=== PATIENT | male | born 1965 | race Caucasian/White ===

== ENCOUNTER 2017-03-11 05:59 | Day surgery (SDC) | payer OTHER ==
[2017-03-11] VITALS (11 sets, daily range): BP systolic 110–149; BP diastolic 68–105; PULSE 90–124; RESP 18–20; TEMP 97.6–98.2; O2SAT 96–98
[~2017-03-11] VITALS: Ht 182.9 cm; Wt 114.0 kg
[2017-03-11] MEDS ORDERED: METOPROLOL TARTRATE 25 MG TAB PO PRN (06:45)
[2017-03-11] MEDS ORDERED: LORazepam 1 MG TAB SL SCH (06:45)
[2017-03-11] MEDS ORDERED: POVIDONE IODINE 5% (ANTISEPSIS KIT) 4 APPLICATIONS EACH NARE PRN (06:45)
[2017-03-11] MEDS ORDERED: SODIUM CHLORID 0.9% 500 ML IV PRN (06:45)
[2017-03-11] MEDS ORDERED: CHLORHEXIDINE GLUCONATE 2 % 1 PACK (2 CLOTHS) TOPICAL PRN (06:45)
[2017-03-11] MEDS ORDERED: LACTATED RINGER'S 1000 ML IV PRN (06:45)
[2017-03-11] MEDS ORDERED: DOFE250 PO (06:52)
[2017-03-11] MEDS ORDERED: MULTTAB4 PO (06:52)
[2017-03-11] MEDS ORDERED: TAMS5CAP PO (06:52)
[2017-03-11] MEDS ORDERED: ALPR.25 PO (06:52)
[2017-03-11] MEDS ORDERED: VENL150T PO (06:52)
[2017-03-11] MEDS ORDERED: PRAD150C PO (06:52)
[2017-03-11] MEDS ORDERED: LEVOFLOXACIN 500 MG PREMIX INJ 100 ML IV ONE (07:32)
[2017-03-11] MEDS ORDERED: HEPARIN-NS/PF INJ 2,000 ML ONE (07:32)
[2017-03-11] MEDS ORDERED: HEPARIN-D5W 25,000 U/250 ML 250 ML ONE (07:48)
[2017-03-11] MEDS ORDERED: PROTAMINE SULFATE 50 MG/5 ML VIAL ONE ×2 (07:48→10:37)
[2017-03-11] MEDS ORDERED: HEPARIN SODIUM - IV 10,000 UNITS/10 ML VIAL ONE ×2 (07:48→09:25)
[2017-03-11] MEDS ORDERED: ISOPROTERENOL HCL 1 MG/5 ML AMP ONE (07:48)
[2017-03-11 07:58] LABS: AUTOMATED NEUTROPHIL # 3.8 TH/MM3 (1.8-7.7); BASOPHIL # 0.2 TH/MM3 (0-0.2); BASOPHIL % 2.6 % (0.0-2.0); EOSINOPHIL # 0.3 TH/MM3 (0-0.4); EOSINOPHIL % 4.2 % (0.0-4.0); HEMATOCRIT 44.3 % (39.0-51.0); HEMOGLOBIN 15.1 GM/DL (13.0-17.0); LYMPH % 35.2 % (9.0-44.0); LYMPHOCYTE # 2.7 TH/MM3 (1.0-4.8); MEAN CELL VOLUME 89.5 FL (80.0-100.0); MEAN CORPUSCULAR HEMOGLOBIN 30.5 PG (27.0-34.0); MEAN CORPUSCULAR HGB CONC 34.1 % (32.0-36.0); MEAN PLATELET VOLUME 9.7 FL (7.0-11.0); MONO % 8.7 % (0.0-8.0); MONOCYTE # 0.7 TH/MM3 (0-0.9); NEUT % 49.3 % (16.0-70.0); PLATELET COUNT 204 TH/MM3 (150-450); RED BLOOD COUNT 4.95 MIL/MM3 (4.50-5.90); RED CELL DISTRIBUTION WIDTH 13.7 % (11.6-17.2); WHITE BLOOD COUNT 7.7 TH/MM3 (4.0-11.0)
[2017-03-11 08:08] LABS: INTERNATIONAL NORMALIZED RATIO 1.1 RATIO; PROTHROMBIN TIME - PATIENT 10.7 SEC (9.8-11.6)
[2017-03-11 08:20] LABS: BICARBONATE 26.3 MEQ/L (21.0-32.0); CALCIUM 8.9 MG/DL (8.5-10.1); CREATININE 1.21 MG/DL (0.60-1.30)
--- NOTE | 2017-03-11 10:36 | PD.CARD ---
Atrial Fibrillation Ablation PROCEDURE DATE: Mar 11, 2017 PROCEDURES PERFORMED: 1. Electrophysiology study on Isuprel infusion 2. CS cannulation 3. 3-D mapping 4. Transseptal approach 5. Right and left heart catheterization 6. Intracardiac echo 7. Radiofrequency ablation of atrial fibrillation 8. Pulmonary vein isolation 9. Posterior wall ablation 10. Mitral valve isolation 11. Mitral line creation 12. Left atrial tachycardia ablation 13. Roof line creation 14. Floor line creation 15. Anterior wall ablation 16. Left atrial appendage isolation 16. Cardioversion INDICATIONS FOR THE PROCEDURE Mr. Martínez is a 51-year-old male with atrial fibrillation, cardiomyopathy, very symptomatic, heart rate difficult to control, admits for electrophysiology study and ablation. The risks, the nature and the benefits of the procedure were clearly stated to him. The risks include pneumothorax, cardiac perforation, stroke, need for open heart surgery and even . The patient understood and agreed to proceed. DESCRIPTION OF THE PROCEDURE IN DETAIL As written informed consent was obtained prior to esophageal echocardiogram, the patient was kept on the table where he was prepped and draped in the usual sterile fashion. Conscious sedation was initiated and maintained throughout the procedure by the anesthesiologist. Once sedation was verified, the right and left inguinal areas were anesthetized with 2% Xylocaine. Using modified Seldinger technique, the left femoral vein was cannulated on three occasions, three guidewires were advanced. Over the wire a 6, 7 and a 10-Canadian Hemaquet were advanced. Then the left femoral artery was cannulated on one occasion, one guidewire was advanced. Over the wire a 4-Canadian Hemaquet was advanced. Then the right femoral vein was cannulated on one occasion, one guidewire was advanced. Over the wire a 8-Canadian Hemaquet was advanced. Then under fluoroscopic guidance through the 6 and 7-Canadian Hemaquet, two 5-Canadian Farrah curved quadripolar electrophysiology catheters were advanced and placed around the His as well as coronary sinus. Basic interval was measured. The patient was in atrial fibrillation. Through the 10-Canadian Hemaquet, a Cordis Vivas AcuNav intracardiac echo catheter was advanced and placed at the right atrium. Multiple view was obtained. There is minimal pericardial effusion, pulmonary vein was seen, atrial septal was visualized. Then the 8- [place] Hema[place] in the right femoral vein was exchanged for Agilis transseptal sheath that was placed all the way to the superior vena cava. Through the sheath a Lissett needle was advanced, then the sheath, the dilator and the needle were progressed until foci engaged. Once engaged, the needle was advanced. RF was delivered for 2 seconds. I was able to cross into the left atrium. Once the needle crossed, the dilator was advanced. Once the dilator crossed, the sheath was advanced. Once the sheath crossed, the dilator and the needle were removed. At this point I did flood the system and fluid movement was seen in the left atrium the indicates the sheath is in good position. The patient already received 10,000 units of heparin. The goal is to keep an ACT around 350 during ablation. Then through the sheath a St. Solo 20 pulse circumferential catheter was advanced. Using [employer] endocardial solution mapping system, a two-dimensional configuration of the left atrium was obtained. Points were taken at the left superior and inferior veins, right superior and inferior veins, mitral valve, and appendages. Then through the sheath a St. Solo TactiCath 65cm 3.5mm irrigated tipped mapping and radiofrequency ablation catheter was advanced. Esophageal probe was placed temperature monitoring during ablation. When it increased to 0.5 degrees Celsius above baseline, I moved to a different area of the atrium. First I did isolate the left superior and inferior vein. I did make a big [place] around the veins. Posterior was ablated. Then a roof line was created, a floor line was created, a mitral line was isolated, then the mitral valve was isolated. At that point the patient was in left atrial tachycardia. Tachycardia was remapped. Early activation at the left atrial appendage. Left atrial appendage was isolated. tachycardia change activation and accelerate.. Then I proceed with anterior wall and lateral wall ablation. I did create a line from the floor to the roof area, passing by the left atrial appendage. Then the right superior and inferior veins were isolated. I did remap the atrium. There is no significant signal in the atrium. I mapped the right atrium. Right was in afib. Left was in atrial tachycardia. At this point I decided to proceed with cardioversion. A 200 sync biphasic joule was delivered that converted the patient into sinus rhythm. At that point I did advance the circumferential catheter again into the vein. There was no signal into the vein, pacing from the vein showed no conduction to the atrium. Isuprel infusion was initiated at 10 mcg for over 10 minutes. No tachyarrhythmia was induced, post Isuprel no tachyarrhythmia was induced. At that point the procedure was complete. All catheters were removed, atrial septal sheath was exchanged for 9-Canadian Hemaquet, intracardiac echo showed no pericardial effusion. There is still good flow in the pulmonary vein. The patient is going to be transferred to the recovery room. No incident report. The patient tolerated the procedure. Blood loss was minimal. FINDINGS 1. Electrocardiogram: At baseline the patient was in atrial fibrillation, post procedure the patient was in sinus rhythm. 2. Basic interval: Base cycle length was around 410ms. Post ablation she was around 980 milliseconds. AH at 100 and HV at 62 milliseconds. 3. Tachyarrhythmia: Atrial fibrillation was mapped and ablated. Atrial tachycardia was ablated. The ablation was successful. CONCLUSION Successful electrophysiology study, mapping, radiofrequency ablation of atrial fibrillation, left atrial tachycardia, pulmonary vein isolation, posterior ablation, mitral valve isolation, mitral line creation, roof line creation, floor line creation, left atrial tachycardia,left atrial appendage isolation and cardioversion. COMMENTS AND RECOMMENDATIONS The patient is going to be transferred to the telemetry unit. Will be observed and when stable can be discharged home. Zaira Eldridge MD Mar 11, 2017 10:36
[2017-03-11] MEDS ORDERED: SODIUM CHLOR 0.9% 250 ML INJ 250 ML IV PRN (10:45)
[2017-03-11] MEDS ORDERED: oxyCODONE/ACETAMINOPHEN 5 MG/325 MG TAB PO PRN ×2 (10:45)
[2017-03-11] MEDS ORDERED: BACITRACIN OINT 0.9 GM PKT TOP ONE (10:45)
[2017-03-11] MEDS ORDERED: ONDANSETRON HCL 4 MG/2 ML VIAL IV PUSH PRN (10:45)
[2017-03-11] MEDS ORDERED: ATROPINE SULFATE 1 MG/ML VIAL IV PUSH PRN (10:45)
[2017-03-11] MEDS ORDERED: LIDOCAINE HCL 1% 50 ML VIAL INFIL PRN (10:45)
[2017-03-11] MEDS ORDERED: LORazepam 2 MG/ML VIAL IV PUSH PRN (10:45)
--- NOTE | 2017-03-11 10:51 | CATHPROC ---
Patient Name: NIVIA INIGUEZ Study #: [id number] Initial MD: Zaira Eldridge Date of : 1965 Study Date: 03/11/2017 Cardiac Catheterization Report 03/11/2017 10:50:57 AM Financial #: [id number] 1 of 11 Patient Name: NIVIA INIGUEZ Study #: [id number] Initial MD: Zaira Eldridge Date of : 1965 Study Date: 03/11/2017 Entire Case Report Patient Information Patient Name NIVIA INIGUEZ Date of 1965 Age 51 years Financial # [id number] Gender M AlternateID Lab Number 2 Room Number DC05 Height (in) 72.0 Height (cm) 182.9 BSA 2.34 Weight (lbs) 249.7 Weight (kg) 113.5 Patient Address/Phone Number Home Address [facility] Home Phone Number [address] [facility] [id number] Study Information Study Number Admission Scheduled Start Study Start [id number] Mar 11 2017 5:59AM 03/11/2017 Mar 11 2017 7:41AM [place] [facility] Electrophysiology Study Admit Source Facility Department Other [facility] Physician and Clinical Staff Initial Zaira Flaherty Police Liaison Officer Sherrie Zuniga RCIS Other Anesthesia, DAIRY CONSULTANT Recorder Isabel Milligan,RN Recorder Paige Parham,KATIE Scrub Hay Moss,RT(R) Procedures Performed Procedure Location (Site) Vessel Name Ablation Procedure Cardioversion ICE CATHETER INSERT RA Atruim RF Ablation LT. ATRIUM LT. A[facility]IUM 03/11/2017 10:50:57 AM Financial #: [id number] 2 of 11 Patient Name: NIVIA INIGUEZ Study #: [id number] Initial MD: Zaira Eldridge Date of : 1965 Study Date: 03/11/2017 Equipment Time Tapper Bit Description Size Mfg Part Number Used/Scraped NEEDLE, TRANSSEPTAL NRG 98 [id number] 08:10 [facility] Used C1 *[id number] BIOSENSE WAGNER [id number] 08:30 CATHETER, ACUNAV FR10 ICE FR 10 Used INC. *[id number] [employer]/ EP 445136 08:10 KIT, TRANSDUCER / AFIB Used PACER *[id number]- CATHETER, TACTICATH ABLAT BUNDLE 08:10 BUN[facility] MAX[employer] Used 65 BUNDLE *[id number]- BUNDLE [id number] CATHETER, FR7 OPTIMA SPIRAL 08:10 BUND[employer] FR7 *[id number]- Used BUNDLE BUNDLE [id number] 08:10 BUND[employer] CATHETER, JSN, QUAD BUNDLE FR 5 *[id number]- Used BUNDLE [id number] 08:10 BUND[employer] CATHETER, JSN, QUAD BUNDLE FR 5 *[id number]- Used BUNDLE 44340-[id number] SET, COOL POINT TUBING 08:10 BUNDLE-[employer] MAXINE *[id number]- Used BUNDLE BUNDLE SHEATH, FR8.5 STEERABLE SM 08:10 BUND[employer] 71CM [id number] Used 71CM BUNDLE COVER, TRANSDUCER CABLE 612-113 08:10 [employer] Used ACUNAV *[id number] 08:10 CORDIS/PACER SHEATH, FR10 ASHLEE 11CM FR 10 Used *[id number] 10:04 CORDIS/PACER SHEATH, FR10 ASHLEE 11CM FR 10 Used *[id number] 08:10 CORDIS/PACER SHEATH, FR9 ASHLEE 11CM FR 9 [id number] Used [id number] 08:10 [employer] PACK, CCL CUSTOM * Used *[id number] 08:10 [employer] PACER SOLO, LIMB * 2530 *[id number] Used [id number] 08:10 [place] SHEATH, FR4.5 PRELUDE 11CM FR 4.5 Used [id number] 08:10 NAMIC TUBING, HIGH PRESSURE 48" 48" Used *[id number] 08:10 NAMIC TUBING, HIGH PRESSURE 48" 48" Used *9130463 [id number] 08:10 [employer] BL[employer]ET,WARM AIR CCL * Used *[id number] HC5729 08:10 [facility] [employer] MEDICAL ELECTRODE KIT, ZOLTAN X SURFACE * Used *[id number] 740796 08:10 [employer] MEDICAL SHEATH, EPS, FR6 FAST CATH FR 6 Used *[id number] 08:10 [employer] MEDICAL SHEATH, EPS, FR7 FAST CATH FR 7 [id number] Used 091089 08:10 [employer] MEDICAL SHEATH, EPS, FR8 FAST CATH FR 8 Used *[id number] [facility] PAD, ELECTROSURGICAL 08:10 * [id number] *[id number] Used SURGICAL GROUNDING (BLUE) 03/11/2017 10:50:57 AM Financial #: [id number] 3 of 11 Patient Name: NIVIA INIGUEZ Study #: [id number] Initial MD: Zaira Eldridge Date of : 1965 Study Date: 03/11/2017 Insurance Information Insurance Payor Private Health Insurance Third Constitution Party Third Constitution Party Number AETNA POS AETPOS History: Allergies Allergy Reaction No Known Allergies History: Risk Factors Hypertension Yes Labs Hgb (g/dl) Hct (%) RBC (MIL/MM3) WBC (l/cumm) Platelets (thousands) 11.60-17.00 35.00-51.00 4.00-5.90 4.00-11.00 150.00-450.00 15.1 44.3 4.9 7.7 204 Medication Medication Total Dose (Bolus/Oral) Medication Total Dosage/Unit 1% XYLOCAINE 40 mL HEPARIN 22012 units PROTAMINE 60 mg 03/11/2017 10:50:57 AM Financial #: [id number] 4 of 11 Patient Name: NIVIA INIGUEZ Study #: [id number] Initial MD: Zaira Eldridge Date of : 1965 Study Date: 03/11/2017 Medications (Bolus/Oral) Medication Time Given Dosage/Unit Administered By Reason 1% XYLOCAINE 03/11/2017 8:20:14 AM 20 mL Zaira Eldridge 20 mL 1% XYLOCAINE given in lab by Zaira Eldridge in Left Groin via Subcutaneous. Ordered by Torrey Eldridge. 1% XYLOCAINE 03/11/2017 8:24:59 AM 20 mL Zaira Eldridge 20 mL 1% XYLOCAINE given in lab by Zaira Eldridge in Right Groin via Subcutaneous. Ordered by Lynn Eldridge. HEPARIN 03/11/2017 8:31:56 AM 56763 units Anesthesia, DAIRY CONSULTANT As per physicians v erbal order 13061 units HEPARIN given in lab by Anesthesia, DAIRY CONSULTANT via Peripheral IV. Ordered by Zaira Eldridge. Melodie son: As per physicians verbal order. HEPARIN 03/11/2017 8:46:20 AM 2000 units Anesthesia, DAIRY CONSULTANT As per physicians ve rbal order 2000 units HEPARIN given in lab by Anesthesia, DAIRY CONSULTANT via Peripheral IV. Ordered by Zaira Eldridge. Reas on: As per physicians verbal order. HEPARIN 03/11/2017 8:58:25 AM 2000 units Anesthesia, DAIRY CONSULTANT As per physicians ve rbal order 2000 units HEPARIN given in lab by Anesthesia, DAIRY CONSULTANT via Peripheral IV. Ordered by Zaira Eldridge. Reas on: As per physicians verbal order. HEPARIN 03/11/2017 9:11:31 AM 2000 units Anesthesia, DAIRY CONSULTANT As per physicians ve rbal order 2000 units HEPARIN given in lab by Anesthesia, DAIRY CONSULTANT via Peripheral IV. Ordered by Zaira Eldridge. Reas on: As per physicians verbal order. HEPARIN 03/11/2017 9:26:10 AM 4000 units Anesthesia, DAIRY CONSULTANT As per physicians ve rbal order 4000 units HEPARIN given in lab by Anesthesia, DAIRY CONSULTANT via Peripheral IV. Ordered by Zaira Eldridge. Reas on: As per physicians verbal order. PROTAMINE 03/11/2017 10:26:44 AM 40 mg Anesthesia, DAIRY CONSULTANT As per physicians sana bal order 40 mg PROTAMINE given in lab by Anesthesia, DAIRY CONSULTANT via Peripheral IV. Ordered by Zaira Eldridge. Reason: As per physicians verbal order. PROTAMINE 03/11/2017 10:39:52 AM 20 mg Anesthesia, DAIRY CONSULTANT As per physicians sana bal order 20 mg PROTAMINE given in lab by Anesthesia, DAIRY CONSULTANT via Peripheral IV. Ordered by Zaira Eldridge. Reason: As per physicians verbal order. Medication (Drip) Medication Time Given Dosage/Unit Concentration/Unit Diluent (ml) Solution HEPARIN DRIP 03/11/2017 8:46:21 AM 1000 units/hr 63041 units 250 D5W 1000 units/hr HEPARIN DRIP given in lab by Anesthesia, DAIRY CONSULTANT via Peripheral IV. Pump/Drip Flow = 10 ml /hr [place] [address] units in 250 ml. Ordered by Hanscy. Jazmyn Reason: As per physicians verbal order. ISUPREL 03/11/2017 10:10:50 AM 10 mcg/min 1 mg 250 NaCl .9 10 mcg/min ISUPREL given in lab by Anesthesia, DAIRY CONSULTANT via Peripheral IV. Pump/Drip Flow = 150 ml/hr usi ng NaCl .9 with a concentration of 1 mg in 250 ml. Ordered by Zaira Eldridge. Reason: As per physicians verbal order. LEVAQUIN 03/11/2017 8:05:29 AM 100 mL/hr 500 100 NaCl .9 100 mL/hr LEVAQUIN given in lab by Anesthesia, DAIRY CONSULTANT via Peripheral IV. Pump/Drip Flow = 0 ml/hr using NaCl .9 with a concentration of 500 in 100 ml. Ordered by Zaira Eldridge. Reason: As per physicians verbal order. for carter catheter 03/11/2017 10:50:57 AM Financial #: [id number] 5 of 11 Patient Name: NIVIA INIGUEZ Study #: [id number] Initial MD: Zaira Eldridge Date of : 1965 Study Date: 03/11/2017 Initial Case Assessment Cardiovascular HR Rhythm NIBP Chest Pain 126 af 145/97 0 Edema Present Skin color Skin None Normal Warm Dry Circulatory - Right Pulses Dorsalis Pedis 1 Scale (0,1,2,3,4,d) Circulatory - Left Pulses Dorsalis Pedis 1 Scale (0,1,2,3,4,d) Circulatory - Lower Extremities Color Lower Right Color Lower Left Normal Normal Neurological State Oriented to time-place- Alert Moves all extremities person Respiration - General Respiration Rate SpO2 (%) (B/min) 18 96 03/11/2017 10:50:57 AM Financial #: [id number] 6 of 11 Patient Name: NIVIA INIGUEZ Study #: [id number] Initial MD: Zaira Eldridge Date of : 1965 Study Date: 03/11/2017 Final Case Assessment Cardiovascular HR Rhythm NIBP Chest Pain 80 sr 110/68 0 Edema Present Skin color Skin None Normal Warm Dry Circulatory - Right Pulses Dorsalis Pedis 1 Scale (0,1,2,3,4,d) Circulatory - Left Pulses Dorsalis Pedis 1 Scale (0,1,2,3,4,d) Circulatory - Lower Extremities Color Lower Right Color Lower Left Normal Normal Neurological State Alert Moves all extremities Respiration - General Respiration Rate SpO2 (%) (B/min) 16 98 Chronological Log Time Study Chronological Log 7:33:37 Patient arrived via Bed. 7:33:38 Patient Name, D.O.B, / Armband Verified By R.N. 7:33:39 Consent signed by the physician and the patient and verified by the [facility] staff. 7:33:40 Pre-op and post- op instructions given; patient acknowledges understanding of instructions. 7:33:44 Patient has been NPO for More than 6Hrs. 7:33:53 History and physical on the chart. 7:34:42 Verbal Stimulation=2 Physical Stimulation=2 Airway=2 Respiration=2 TOTAL=8. (0=absent, 1=li mited, 2=present) 7:34:46 Skin Breakdown- none per pt. 7:35:47 Patient Warmer Placed on the Table. 03/11/2017 10:50:57 AM Financial #: [id number] Patient Name: NIVIA INIGUEZ Study #: [id number] Initial MD: Zaira Eldridge Date of : 1965 Study Date: 03/11/2017 7:35:48 Disposable Defibrillator Pads Placed On Patient. 7:36:49 Kelvin Prominences Protected 7:36:51 A # 20 IV was noted in the Antecubital (left). Grade = 0 0.9% NaCl @ KVO 7:41:52 A # 20 IV was noted in the Antecubital (right). Grade = 0 0.9% NaCl @ KVO 7:45:13 Anesthesia at bedside. Assumes care of patient. Maykel 7:45:48 Table restraints applied according to hospital policy Assessment: Initial Case, ZH=627 BPM, Rhythm=af, LALP=569/97 mmhg, Chest Pain=0, Edema=None, Co cassia=Normal, Skin = Warm, Dry Right Pulses: Omar Ped=1 Left Pulses: Omar Ped=1 7:52:57 Lower Right Extremities: Color=Normal Lower Left Extremities: Color=Normal Neurological: State=Alert, Ox3, DORADO Respiration: Resp=18 B/min, SpO2=96 % 7:55:20 Reference ECG taken Anesthesiologist Dr. Connelly present for intubation. A 14Fr carter catheter was inserted aseptically with clear yellow urine 7:56:40 returns. 8:04:41 Bilateral groins prepped with 2% chlorhexidine, and draped after a 3 minute waiting time. 100 mL/hr LEVAQUIN given in lab by Anesthesia, DAIRY CONSULTANT via Peripheral IV. Pump/Drip Flow = 0 ml/hr using NaCl .9 with 8:05:29 a concentration of 500 in 100 ml. Ordered by Zaira Eldridge. Reason: As per physicians verbal or justin. for carter catheter 8:07:00 paged. 8:08:00 MD responded 8:12:32 MD arrived. Time Out. Correct patient, procedure, procedure equipment, site and side verified with physicia n present. Time 8:17:00 concurred by MD, individual staff and DAIRY CONSULTANT. Time Out #2 - Consents verified, patient in correct position, all results are labled and displa yed, safety precautions 8:17:14 taken, antibiotics administered. Time out concurred by MD, individual staff and DAIRY CONSULTANT in procedu re 8:17:21 Case Start 8:17:52 DAE in progress. 8:19:19 DAE completed, negative. 8:20:14 20 mL 1% XYLOCAINE given in lab by Zaira Eldridge in Left Groin via Subcutaneous. Ordered by Zaira Eldridge. 8:21:34 Vascular access was obtained in the Fem Vein (left). 8:21:41 Vascular access was obtained in the Fem Vein (left). 8:21:54 Vascular access was obtained in the Fem Vein (left). 8:22:02 Vascular access was obtained in the Fem Art (left). 8:22:18 A SHEATH, FR4.5 PRELUDE 11CM FR 4.5 was advanced into the Fem Art (left) using the Modified Seldinger technique. 8:22:34 A SHEATH, EPS, FR7 FAST CATH FR 7 was advanced into the Fem Vein (left) using the Modified Seldinger technique. 8:22:51 A SHEATH, EPS, FR6 FAST CATH FR 6 was advanced into the Fem Vein (left) using the Modified Seldinger technique. 8:22:59 A SHEATH, FR10 ASHLEE 11CM FR 10 was advanced into the Fem Vein (left) using the Modified S eldinger technique. 8:24:59 20 mL 1% XYLOCAINE given in lab by Zaira Eldridge in Right Groin via Subcutaneous. Ordered b Zaira Tilley. 8:25:06 Vascular access was obtained in the Fem Vein (right). 8:25:18 A SHEATH, EPS, FR8 FAST CATH FR 8 was advanced into the Fem Vein (right) using the Modified Seldinger technique. 03/11/2017 10:50:57 AM Financial #: [id number] 8 of 11 Patient Name: NIVIA INIGUEZ Study #: [id number] Initial MD: Zaira Eldridge Date of : 1965 Study Date: 03/11/2017 A CATHETER, JSN, QUAD BUNDLE FR 5 was advanced vis Fem Vein (left) and placed in the CS. Placem ent was visually 8:26:51 confirmed under fluoroscopy. A CATHETER, JSN, QUAD BUNDLE FR 5 was advanced vis Fem Vein (left) and placed in the HIS. Place ment was 8:27:03 visually confirmed under fluoroscopy. 8:27:20 CATHETER, ACUNAV FR10 ICE FR 10 Was Postioned. 8:27:54 temp 36.4 A SHEATH, FR8.5 STEERABLE SM 71CM BUNDLE 71CM was exchanged in the Fem Vein (left). This was ne cessary in 8:29:24 order for catheter support. 8:30:29 [place] needle in 8:30:48 A eps was advanced to the right atrium and passed through the septal wall to the left atriu [place]. 01032 units HEPARIN given in lab by Anesthesia, DAIRY CONSULTANT via Peripheral IV. Ordered by Dave Eldridge Reason: As per 8:31:56 physicians verbal order. 8:31:59 [place] needle out. A CATHETER, FR7 OPTIMA SPIRAL BUNDLE FR7 was advanced vis Fem Vein (right) and placed in the LA . Placement 8:33:25 was visually confirmed under fluoroscopy. 8:33:52 Mapping in progress. 8:40:50 Activated Clotting Time Drawn 8:41:57 Mapping complete, catheter was removed spiral) A CATHETER, TACTICATH ABLAT 65 BUNDLE was advanced vis Fem Vein (right) and placed in the LA. P lacement was 8:42:34 visually confirmed under fluoroscopy. 8:43:54 ACT (Normal Range 90-180) = 332 8:44:42 Ablation in progress 2000 units HEPARIN given in lab by Anesthesia, DAIRY CONSULTANT via Peripheral IV. Ordered by Zaira Eldridge . Reason: As per 8:46:20 physicians verbal order. 1000 units/hr HEPARIN DRIP given in lab by Anesthesia, DAIRY CONSULTANT via Peripheral IV. Pump/Drip Flow = 10 ml/hr using 8:46:21 D[place] [address] units in 250 ml. Ordered by Zaira Eldridge. Reason: As per luci hansonians verbal order. 8:52:06 Activated Clotting Time Drawn 8:58:18 ACT (Normal Range 90-180) = 328 2000 units HEPARIN given in lab by Anesthesia, DAIRY CONSULTANT via Peripheral IV. Ordered by Zaira Eldridge . Reason: As per 8:58:25 physicians verbal order. 9:00:26 Ablation remains in progress. 9:04:09 Activated Clotting Time Drawn 9:11:20 ACT (Normal Range 90-180) = 340 2000 units HEPARIN given in lab by Anesthesia, DAIRY CONSULTANT via Peripheral IV. Ordered by Zaira Eldridge . Reason: As per 9:11:31 physicians verbal order. 9:16:11 Activated Clotting Time Drawn 9:24:50 ACT (Normal Range 90-180) = 334 9:24:56 BL out. MM in. 4000 units HEPARIN given in lab by Anesthesia, DAIRY CONSULTANT via Peripheral IV. Ordered by Zaira Eldridge . Reason: As per 9:26:10 physicians verbal order. 9:32:27 Activated Clotting Time Drawn 9:43:25 ACT (Normal Range 90-180) = 371 9:45:31 Ablation Catheter removed A CATHETER, FR7 OPTIMA SPIRAL BUNDLE FR7 was advanced vis Fem Vein (right) and placed in the LA . Placement 9:45:51 was visually confirmed under fluoroscopy. 03/11/2017 10:50:57 AM Financial #: [id number] Patient Name: NIVIA INIGUEZ Study #: [id number] Initial MD: Zaira Eldridge Date of : 1965 Study Date: 03/11/2017 9:49:18 Mapping Catheter removed A CATHETER, TACTICATH ABLAT 65 BUNDLE was advanced vis Fem Vein (right) and placed in the LA. P lacement was 9:49:29 visually confirmed under fluoroscopy. 10:04:00 Ablation complete. 10:04:17 ECG rhythm of AF noted. Patient cardioverted at 200 joules. Success synch 10:04:31 Monitor SR. 10 mcg/min ISUPREL given in lab by Anesthesia, DAIRY CONSULTANT via Peripheral IV. Pump/Drip Flow = 150 ml/ hr using NaCl .9 10:10:50 with a concentration of 1 mg in 250 ml. Ordered by Zaira Eldridge. Reason: As per physicians sana bal order. 10:21:00 Isuprel off. 10::29 All Catheter(s) removed without difficulty A SHEATH, FR9 ASHLEE 11CM FR 9 was exchanged in the Fem Vein (right). This was necessary in ord er to minimize 10::58 site leakage. 10:22:00 Heparin off. 10::21 Sheath(s) left in place,secured, 0.9ns kvo connected and will be removed in Holding Area. 10:23:45 Ablation procedure performed: VT. 10:23:51 EP Procedure was performed. 10:24:11 PACU called. Spoke to Angie 10:24:38 Bedside Report will be given. 40 mg PROTAMINE given in lab by Anesthesia, DAIRY CONSULTANT via Peripheral IV. Ordered by Zaira Eldridge. R miya: As per 10:26:44 physicians verbal order. 10:32:00 Activated Clotting Time Drawn 10:35:50 Case End 10:35:51 Sterile dressing applied to site 10:35:51 No case complications noted. 10:35:52 Cine recording checked. Assessment: Final Case, HR=80 BPM, Rhythm=sr, BDWZ=697/68 mmhg, Chest Pain=0, Edema=None, Color =Normal, Skin = Warm, Dry Right Pulses: Omar Ped=1 Left Pulses: Omar Ped=1 10:37:30 Lower Right Extremities: Color=Normal Lower Left Extremities: Color=Normal Neurological: State=Alert, DORADO Respiration: Resp=16 B/min, SpO2=98 % 10:39:16 Defibrillator and ground pads removed. Skin intact. 10:39:37 ACT (Normal Range 90-180) = 257 20 mg PROTAMINE given in lab by Anesthesia, DAIRY CONSULTANT via Peripheral IV. Ordered by Zaira Eldridge. R miya: As per 10:39:52 physicians verbal order. 10:46:22 Patient moved to stretcher 10:47:00 Activated Clotting Time Drawn 10:50:45 ACT (Normal Range 90-180) = 180 03/11/2017 10:50:57 AM Financial #: [id number] Patient Name: NIVIA INIGUEZ Study #: [id number] Initial MD: Zaira Eldridge Date of : 1965 Study Date: 03/11/2017 End Study - Radiation Exposure Fluoro Time (minutes) 2.7 End Study - Patient Disposition Complications Transferred To Interventional Outcome No Telemetry Bed successful 03/11/2017 10:50:57 AM Financial #: [id number]
[2017-03-11] MEDS ORDERED: DO NOT ADM ANY ANTICOAGULANT DRUGS PRN (10:55)
[2017-03-11] MEDS ORDERED: *MEPERIDINE 25 MG INJ VIAL PERIprocedural Use ONLY ONE (11:01)
[2017-03-11] MEDS ORDERED: PHENYLEPH/NS 1000 MCG/10 ML SYR IV ONE (12:00)
[2017-03-11] MEDS ORDERED: ONDANSETRON HCL 4 MG/2 ML VIAL IV ONE (12:00)
[2017-03-11] MEDS ORDERED: PHENYLEPHRINE HCL 10 MG/ML VIAL IV ONE (12:00)
[2017-03-11] MEDS ORDERED: LIDOCAINE HCL 1% PF 5 ML SYRINGE OTHER ONE (12:00)
[2017-03-11] MEDS ORDERED: ePHEDrine/NS 25 MG/5 ML SYRINGE IV ONE (12:00)
[2017-03-11] MEDS ORDERED: PROPOFOL 200 MG/20 ML AMP IV ONE (12:00)
[2017-03-11] MEDS ORDERED: ROCURONIUM INJ 50 MG/5 ML SYRINGE IV PUSH ONE (12:00)
[2017-03-11] MEDS ORDERED: DEXAMETHASONE SOD PHOS 4 MG/ML VIAL IV ONE (12:00)
[2017-03-11] MEDS ORDERED: *morphine SULFATE 4 MG/ML PERIprocedure ONLY ONE (13:14)
[2017-03-11] MEDS: DOFETILIDE 250 MCG CAP PO SCH (16:22)
[2017-03-11] MEDS: SODIUM CHLORID 0.9% 500 ML INJ 500 ML IV SCH ×2 (16:53→23:25)
--- NOTE | 2017-03-11 17:12 | EKG ---
Date Performed: 03/11/2017 Time Performed: 11:09:20 PTAGE: 51 years EKG: SINUS TACHYCARDIA WITH FIRST DEGREE AV BLOCK POSSIBLE LEFT ATRIAL ENLARGEMENT MODERATE T-WA VE ABNORMALITY, CONSIDER LATERAL ISCHEMIA ABNORMAL ECG PREVIOUS TRACING : 03/11/2017 06.55 DOCTOR: Zaira Eldridge Interpretating Date/Time 03/11/2017 17:10:21
--- NOTE | 2017-03-11 17:23 | EKG ---
Date Performed: 03/11/2017 Time Performed: 06:55:30 PTAGE: 51 years EKG: Atrial fibrillation with rapid ventricular response with PVC(s) or aberrant ventricular con duction. LVH with secondary repolarization abnormality Extensive ST-T changes are probably due to rubén tricular hypertrophy Abnormal ECG NO PREVIOUS TRACING DOCTOR: Zaira Eldridge Interpretating Date/Time 03/11/2017 17:20:32
[2017-03-11] MEDS: DABIGATRAN ETEXILATE 150 MG CAP PO SCH (20:40)
[2017-03-11] MEDS: TAMSULOSIN HCL 0.4 MG CAP PO SCH (20:40)
--- NOTE | 2017-03-11 21:10 | EKG ---
Date Performed: 03/11/2017 Time Performed: 17:34:08 PTAGE: 51 years EKG: Sinus rhythm with PVC(s) with PAC(s) with 1st degree A-V block. Possible right atrial abnormality Extensive T wav e changes Abnormal ECG Since PREVIOUS TRACING , no significant change noted DOCTOR: Warner Contreras Interpretating Date/Time 03/11/2017 21:09:26
[2017-03-12] VITALS (26 sets, daily range): BP systolic 110–115; BP diastolic 69–79; PULSE 84–108; RESP 16–20; TEMP 97.5–98.6; O2SAT 95–100
[2017-03-12] MEDS: DOFETILIDE 250 MCG CAP PO SCH (02:11)
[2017-03-12] MEDS: ALPRAZolam 0.25 MG TAB PO PRN ×2 (02:24→20:53)
--- NOTE | 2017-03-12 07:46 | PD.CARD.PN ---
Subjective Subjective Remarks Feels okay. Had some palpitations overnight. (Ngoc Guy) Objective Medications Current Medications Medications (Trade) Dose Ordered Sig/Sirena Route Start Time Stop Time Status Last Admin Sodium Chloride 500 ml @ 30 mls/hr [id number] IV 03/11/17 06:45 (Ativan) 1 mg [employer] SL 03/11/17 06:45 03/14/17 06:44 (Lopressor) 25 mg [employer] PRN PO 03/11/17 06:45 03/14/17 06:44 (Betadine 5% Antisepsis Kit) 1 applic [employer]ER PRN EACH NARE 03/11/17 06:45 03/14/17 06:44 (Chlorhexidine 2% Cloth) 3 pack [employer]ER PRN TOPICAL 03/11/17 06:45 03/14/17 06:44 (Percocet 5-325 Mg) 1 tab Q4H PRN PO 03/11/17 10:45 03/11/17 14:03 (Percocet 5-325 Mg) 2 tab Q4H PRN PO 03/11/17 10:45 03/11/17 20:42 (Ativan Inj) 0.5 mg UNSCH PRN IV PUSH 03/11/17 10:45 03/12/17 10:44 (Atropine Inj) 0.5 mg UNSCH PRN IV PUSH 03/11/17 10:45 Sodium Chloride 250 ml @ 500 mls/hr ONCE PRN IV 03/11/17 10:45 03/12/17 10:44 (Zofran Inj) 4 mg Q4H PRN IV PUSH 03/11/17 10:45 (Xylocaine 1% Inj (50 ml)) 10 ml UNSCH PRN INFIL 03/11/17 10:45 03/12/17 10:44 (Xanax) 0.25 mg Q6H PRN PO 03/11/17 10:45 03/12/17 02:24 (Pradaxa) 150 mg BID PO 03/11/17 21:00 03/11/17 20:40 (Tikosyn) 250 mcg Q12H PO 03/11/17 11:00 03/12/17 02:11 (Flomax) 0.4 mg HS PO 03/11/17 21:00 03/11/17 20:40 (Effexor Xr) 150 mg DAILY PO 03/12/17 09:00 (Theragran) 1 tab DAILY PO 03/12/17 09:00 Miscellaneous Information ALL NURSING DEPARTME... UNSCH PRN .XX 03/11/17 10:55 03/12/17 10:54 Vital Signs / I&O Vital Signs Date Time Temp Pulse Resp B/P (MAP) Pulse Ox O2 Delivery O2 Flow Rate FiO2 03/12/17 06:00 89 03/12/17 05:00 88 03/12/17 04:00 88 03/12/17 04:00 97.9 91 20 115/71 (86) 95 03/12/17 03:00 90 03/12/17 02:00 90 03/12/17 01:00 92 03/12/17 00:00 97.7 90 20 111/79 (90) 97 03/12/17 00:00 99 03/11/17 23:00 94 03/11/17 22:00 94 03/11/17 21:00 100 03/11/17 20:00 98 03/11/17 20:00 97.6 99 20 123/80 (94) 96 03/11/17 19:00 102 03/11/17 18:00 90 03/11/17 17:00 96 03/11/17 16:53 18 03/11/17 16:00 98.2 97 18 110/68 (82) 98 03/11/17 16:00 104 03/11/17 15:00 100 03/11/17 14:00 99 03/11/17 13:00 97.5 101 16 103/59 (74) 96 Nasal Cannula 2 03/11/17 12:30 97 14 114/64 (81) 96 Nasal Cannula 2 03/11/17 12:00 99 16 108/62 (77) 96 Nasal Cannula 2 03/11/17 11:45 101 15 102/67 (79) 96 Nasal Cannula 2 03/11/17 11:30 100 16 106/69 (81) 96 Nasal Cannula 2 03/11/17 11:15 102 14 103/63 (76) 95 Nasal Cannula 2 03/11/17 11:00 104 19 105/69 (81) 97 Nasal Cannula 2 03/11/17 10:57 97.7 106 20 111/68 (82) 97 Nasal Cannula 2 I/O 03/11/17 03/11/17 03/11/17 03/12/17 03/12/17 03/12/17 07:00 15:00 23:00 07:00 15:00 23:00 Intake Total 0 ml 300 ml 680 ml Output Total 1000 ml 925 ml 400 ml Balance -1000 ml -625 ml 280 ml Intake Oral 300 ml 680 ml IV Total 0 ml Output Urine Total 1000 ml 925 ml 400 ml Physical Exam GENERAL: Well-nourished, well-developed patient. SKIN: Warm and dry. Groin site soft without bruising or bleeding. HEAD: Normocephalic. EYES: No scleral icterus. No injection or drainage. NECK: Supple, trachea midline. No JVD or lymphadenopathy. CARDIOVASCULAR: Regular rate and rhythm without murmurs, gallops, or rubs. RESPIRATORY: Breath sounds equal bilaterally. No accessory muscle use. GASTROINTESTINAL: Abdomen soft, non-tender, nondistended. EXTREMITIES: No cyanosis, or edema. NEUROLOGICAL: Awake, alert, and oriented x 3. Non-focal. (Ngoc Guy) Assessment and Plan Problem List: (1) Atrial fibrillation ICD Codes: I48.91 - Unspecified atrial fibrillation Plan: Normal sinus rhythm on telemetry, with frequent bouts of narrow and wide complex tachyarrhythmias. D/W Dr. Eldridge and bill d/c'd per that conversation and DC held. [employer]vest not on patient yet, pending delivery. (2) S/P ablation of atrial fibrillation ICD Codes: Z98.890 - Other specified postprocedural states; Z86.79 - Personal history of other diseases of the circulatory system Plan: Continued tachyarrhythmia overnight with symptomatic WCT. Hold DC. Dr. Eldridge to re-evaluate this afternoon. (Ngoc Guy) Problem List: (1) Atrial fibrillation ICD Codes: I48.91 - Unspecified atrial fibrillation Plan: Normal sinus rhythm on telemetry, with frequent bouts of narrow and wide complex tachyarrhythmias. D/W Dr. Eldridge and bill d/c'd per that conversation and DC held. Lifevest not on patient yet, pending delivery. (2) S/P ablation of atrial fibrillation ICD Codes: Z98.890 - Other specified postprocedural states; Z86.79 - Personal history of other diseases of the circulatory system Plan: In sinus rhythm Doing well EF 20%. Tachycardia mediated cardiomyopathy. Will need defib vest for sudden prevention. Echo will be repeated in 60 days. can be DH when defib vest available. (Zaira Eldridge MD) Ngoc Guy Mar 12, 2017 07:46 Zaira Eldridge MD Mar 12, 2017 19:03
[2017-03-12] MEDS: DABIGATRAN ETEXILATE 150 MG CAP PO SCH ×2 (09:20→20:48)
[2017-03-12] MEDS: MULTIVITAMIN TAB PO SCH (09:21)
[2017-03-12] MEDS: VENLAFAXINE HCL XR 75 MG CAP PO SCH (09:22)
--- NOTE | 2017-03-12 12:04 | EKG ---
Date Performed: 03/12/2017 Time Performed: 03:54:22 PTAGE: 51 years EKG: Sinus rhythm with PVC(s) with PAC(s) with 1st degree A-V block Possible right atrial abnormality Left ventricular hypertrophy Extensive ST-T changes may be due to hypertrophy and/or ischemia Abnormal ECG PREVIOUS TRACING : 03/11/2017 17.34 Since the prior tracing, there has been no significant huffman DOCTOR: Warner Contreras Interpretating Date/Time 03/12/2017 12:03:07
[2017-03-12 13:10] LABS: INTERNATIONAL NORMALIZED RATIO 1.2 RATIO; PROTHROMBIN TIME - PATIENT 12.5 SEC (9.8-11.6)
[2017-03-12] MEDS: SODIUM CHLORID 0.9% 500 ML INJ 500 ML IV SCH (16:05)
[2017-03-12] MEDS: TAMSULOSIN HCL 0.4 MG CAP PO SCH (20:48)
[2017-03-13] VITALS (18 sets, daily range): BP systolic 119–127; BP diastolic 63–76; PULSE 80–90; RESP 16–19; TEMP 97.9–98.2; O2SAT 94–98
[2017-03-13] MEDS: SODIUM CHLORID 0.9% 500 ML INJ 500 ML IV SCH (08:45)
[2017-03-13] MEDS: DABIGATRAN ETEXILATE 150 MG CAP PO SCH (09:33)
[2017-03-13] MEDS: MULTIVITAMIN TAB PO SCH (09:33)
[2017-03-13] MEDS: VENLAFAXINE HCL XR 75 MG CAP PO SCH (09:33)
== END 2017-03-13 15:38 | disposition home or self-care (01) ==
LOC: HDOC 05:59 → HDIC 06:03 → HCIS 15:15 → HDOC 03-13 15:38
PROVIDERS: ATTEND Internal Medicine Interventional Cardiology
DX: I48.91 Unspecified atrial fibrillation (principal); I11.9 Hypertensive heart disease without heart failure; I42.9 Cardiomyopathy, unspecified; I31.3 Pericardial effusion (noninflammatory); I47.1 Supraventricular tachycardia; Z79.01 Long term (current) use of anticoagulants
CPT/HCPCS: 00537; 80048; 82948; 85002; 85025; 85610; 85730; 86850; 86900; 86901; 92960; 93005; 93312; 93320; 93325; 93613; 93623; 93656; 93662; C1730; C1731; C1732; C1759; C1766; C2630; J1100; J1644; J1956; J2175; J2270; J2370; J2405; J2720; J3010